=== PATIENT | male | born 1995 | race Caucasian/White ===

== ENCOUNTER 2018-08-16 21:53 | Emergency (ER) | payer MEDICARE, MEDICAID ==
[~2018-08-16] VITALS: Ht 185.4 cm; Wt 74.8 kg
[2018-08-16 22:09] VITALS: BP 137/79
--- NOTE | 2018-08-17 00:48 | NUR ---
PT'S MOTHER JULIAN CONTACT INFO CALLED FOR PICK PER PT'S REQUEST, NO ANSWER. LEFT MESSAGE TO RETURN CALL
--- NOTE | 2018-08-17 02:10 | NUR ---
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
--- NOTE | 2018-08-17 03:30 | NUR ---
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
== END 2018-08-17 04:12 | disposition home or self-care (01) ==
LOC: ER 21:57
DX: S92.152A Displaced avulsion fracture (chip fracture) of left talus, initial encounter for closed fracture (principal); S70.02XA Contusion of left hip, initial encounter; F13.20 Sedative, hypnotic or anxiolytic dependence, uncomplicated; F41.9 Anxiety disorder, unspecified; F20.9 Schizophrenia, unspecified; F31.9 Bipolar disorder, unspecified; F90.9 Attention-deficit hyperactivity disorder, unspecified type; F17.200 Nicotine dependence, unspecified, uncomplicated; V19.9XXA Pedal cyclist (driver) (passenger) injured in unspecified traffic accident, initial encounter; Y93.89 Activity, other specified; Y92.89 Other specified places as the place of occurrence of the external cause; Y99.8 Other external cause status
CPT/HCPCS: 73502; 73610-TC